=== PATIENT | male | born 1985 | race Caucasian/White ===

== ENCOUNTER 2016-08-12 05:45 | Day surgery (SDC) | payer OTHER ==
[2016-08-12] VITALS (8 sets, daily range): BP systolic 117–165; BP diastolic 57–94; PULSE 70–92; RESP 13–19; O2SAT 92–96
[~2016-08-12] VITALS: Ht 177.8 cm; Wt 92.5 kg
[~2016-08-12 05:45] MED LIST: Lactated Ringer's 1,000 ML IV ONE
[2016-08-12] MEDS ORDERED: fentaNYL-PF 50 mCg/mL 2 mL Inj ONE (05:46)
[2016-08-12] MEDS ORDERED: Propofol 10,000 mCg/mL 20 mL Inj ONE (05:46)
[2016-08-12] MEDS ORDERED: Dexamethasone 4 mg/mL Inj ONE (05:46)
[2016-08-12] MEDS ORDERED: Succinylcholine Chloride 20 mg/mL 5 mL Inj ONE (05:46)
[2016-08-12] MEDS ORDERED: Ondansetron 2 mg/mL 2 mL Inj ONE (05:46)
[2016-08-12] MEDS ORDERED: CeFAZolin Inj 2 gm / 50mL D5W IV ONE (05:48)
[2016-08-12] MEDS ORDERED: CeFAZolin Inj 2 GM in Dextrose 5% 50 ML IV ONE (06:00)
--- NOTE | 2016-08-12 07:15 | PCM.HPANE ---
Patient Data Surgeon Admitting Provider: Attending Provider:Bigg Whittaker DO Primary Care Physician:Betsy Other Provider:Og Son Anesthesia Reason for Visit Right Distal Biceps Tear Ht/WT & BMI Height (Feet): 5 Height (Inches): 10.00 Weight (Kilograms): 92.5 Body Mass Index 29.00 Allergies Coded Allergies: No Known Allergies (Unverified , 08/08/16) Past Anesthesia History Anesthesia History: Denies:: Fam Anesthesia Reaction, Fam Malignant Hypertherm Diabetes History Hx Diabetes?: No MRSA MRSA: No Medications Home Meds Incl Beta Gerda: No No Active Prescriptions or Reported Meds History History of ENT Problems?: No HEENT History: Denies:: Abnormal Airway Cataracts Difficult Intubation Dysphagia Glaucoma Hearing Problem Sinus Problem TMJ Denture Type: None Teeth Condition: Within Normal Limits Hx of Heart Problems?: No Cardiovascular History: Denies:: Heart Murmur Hypertension Hx of Respiratory Problem?: Yes Respiratory History: Denies:: Use of C-PAP Machine (SNORES) Hx Neurologic Problems?: No Hx of GI Problems?: No Hx of Problems?: No Male Hx: Denies:: Prostate Problems Scrotal Mass Testicular Surgery Skin History: Denies:: History Skin Disorders? Pressure Ulcers Hx Musculoskeletal Problems?: Yes Musculoskeletal History: Positive for:: Musculoskeletal Trauma (RT BICEPS TENDON RUPTURE=CURRENT PROBLEM) Hx of Psycho/Social Problems?: No Hx Surgeries?: No Hx Any Other Health Problems?: No Other History: Denies:: Cancer Endocrine Disease Hospitalization Thyroid Disease Hx Diabetes: No Have You Smoked inLast 12 mo: Yes (CIGARS DAILY) Stop/Bang S-Snoring: Do You Snore Loudly: Yes T-Tired: feel tired, fatigued: No P-Blood Pressure: treated: No B- Body Mass Index > 35 kg/m2: No A- Age over 50: No N- Neck Large Circumference: No G- Gender Male: Yes PA Risk Assessment: Low Risk, <3 Yes Risk Assessment Category Category 1A: Patient has history of documented sleep apnea, and HAS NOT received any narcotic, sedative or anesthesia administration during this stay. Category 1B: Patient has history of documented sleep apnea, and HAS received any narcotic , sedative or anesthesia administration during this stay Category 2: Patient has SUSPECTED Obstructive Sleep Apnea, and HAS received any narcotic , sedative or anesthesia administration during this stay. Category 3: Patient has SUSPECTED Obstructive Sleep Apnea and HAS NOT received narcotic, sedative or anesthesia administration during this stay. Category 4: Outpatient in Procedural Areas with known sleep apnea or who screen positive for High Risk via the STOP/BANG questionnaire. Exam Exam Vital Signs Vital Signs Date Time Temp Pulse Resp B/P Pulse Ox O2 Delivery O2 Flow Rate FiO2 08/12/16 06:13 35.8 75 18 135/87 96 Room Air General Appearance: Alert HEENT/AIRWAY: MP 1 Lungs: Clear to Auscultation Heart: Exam Unremarkable Meds/Labs/Diagnostics Admission Meds Current Medications Lactated Ringer's (Lr) 1,000 ml @ 120 mls/hr Q8H20M ONCE IV Last administered on 08/12/16t 05:52; Start 08/12/16 at 05:00; Stop 08/12/16 at 13:19 Plan Impression Patient chart reviewed, patient interviewed and anesthestic plan with risks, benefits, and alternatives discussed, and informed consent obtained. NPO per Anesth. Guidelines: Yes ASA Physical Status: ASA1 Normal Healthy Anesthetic Plan: GA Bene/Risks/Altern/Consents: Yes HP Complete Prior to Induction: Yes Maulik Lee MD August 12, 2016 07:15
[2016-08-12] MEDS ORDERED: Lactated Ringer's 500 ML IV PRN (07:57)
[2016-08-12] MEDS ORDERED: Ropivacaine-PF 0.5% 30 mL Inj INFILTRATE ONE (07:57)
[2016-08-12] MEDS ORDERED: Lactated Ringer's 1,000 ML IV SCH (07:57)
[2016-08-12] MEDS ORDERED: Phenylephrine 10,000 mCg/mL Inj IVPUSH PRN (08:00)
[2016-08-12] MEDS ORDERED: Ondansetron 2 mg/mL 2 mL Inj IVPUSH PRN (08:00)
[2016-08-12] MEDS ORDERED: Dexamethasone 4 mg/mL Inj IVPUSH PRN (08:00)
[2016-08-12] MEDS ORDERED: HYDROmorphone 1 mg/mL Inj IVPUSH PRN (08:00)
[2016-08-12] MEDS ORDERED: EPHEDrine Sulfate 50 mg/mL Inj IVPUSH PRN (08:00)
[2016-08-12] MEDS ORDERED: MetoCLOpramide 5 mg/mL 2 mL Inj IVPUSH PRN (08:00)
[2016-08-12] MEDS ORDERED: fentaNYL-PF 50 mCg/mL 2 mL Inj IVPUSH PRN (08:00)
[2016-08-12] MEDS ORDERED: Lactated Ringer's 1,000 ML IV ONE (09:19)
--- NOTE | 2016-08-12 09:40 | PCM.ANEP1 ---
Post Anesthesia PACU Phase 1 Assessment Vital Signs Vital Signs Date Time Temp Pulse Resp B/P Pulse Ox O2 Delivery O2 Flow Rate FiO2 08/12/16 06:13 35.8 75 18 135/87 96 Room Air Anesthetic Administered: GA Level of Alertness: Awake, talking MCLAIN's with Equal Strength: Yes Pain: No Nausea or Vomiting: No CV Function and Hydration: Yes Airway Device: Oxygen Delivery: Simple Mask Lungs: Clear to Auscultation Dermatome Level: Full Sensation PACU Phase 2 Assessment Complications: No Follow up Care: No Patient Instructions Provided: Yes Maulik Lee MD August 12, 2016 09:40
[2016-08-12] MEDS ORDERED: hydrOXYzine Pamoate 25 mg Capsule PO PRN (09:50)
[2016-08-12] MEDS ORDERED: Acetaminophen IV 1,000 MG in IV Premix 1 EACH IV ONE (09:50)
--- NOTE | 2016-08-12 10:51 | OP ---
[address] [address] OPERATIVE REPORT PATIENT: LENARD FULTON : 1985 MR#: [id number] ADMIT: 08/12/2016 JOB ID: [id number] DATE OF SURGERY: 08/12/2016 PREOPERATIVE DIAGNOSIS(ES): Right distal biceps rupture. POSTOPERATIVE DIAGNOSIS(ES): Right distal biceps rupture. PROCEDURE: Right distal biceps tendon repair. SURGEON: Bigg Whittaker DO INDICATIONS: The patient is a 31-year-old male who injured his right elbow on July 13, 2016, when he was helping to move some construction material, felt a pop in his arm and had immediate onset of pain, swelling, and bruising. He has tried to rehab this, but his arm continues to feel not right. He has pain, weakness, and is unable to supinate. Had an MRI performed which demonstrated a tear of the distal biceps. We discussed treatment options for this, and I recommended operative fixation of his distal biceps tendon rupture. We discussed the risks, benefits, and possible complications of surgery. All questions were answered and he wished to proceed. PROCEDURE IN DETAIL: The patient is brought to the operating room. He was given a preoperative antibiotic and general anesthetic. The right upper extremity was sterilely prepped and draped. A tourniquet was used for hemostasis. An incision was made 2 cm distal to the flexion crease in the elbow. Dissection was carefully carried through the subcutaneous tissue. Electrocautery was used for hemostasis and the veins were ligated and divided. The lateral antebrachial cutaneous nerve was identified and protected through the procedure. Dissection was carried down onto the biceps and there was some fluid and the abnormal attenuated tendinous tissue which had become adherent to the lacertus fibrosus. This was released and the actual biceps tendon had retracted about 6 cm up the arm and was adherent to the underlying brachialis. This was bluntly dissected free in order to mobilize the tendon and the attenuated and mucoid end of the tendon was cut. Next, the cut end of the biceps was whipstitched with a #2 FiberWire through an Endo button placed distally, and then this was run back up through the tendon in order to secure it with a knot more proximally on the tendon. I whipstitched over a distance of about 3 cm up and down the tendon with some running and running locking sutures, yielding excellent fixation of the biceps tendon distally. Next, the radius was prepared. Army-Radisson retractors were used to hold the brachial artery out of harm's way, and a Dubon was used to elevate the tissue over the radial tuberosity. A 0.062 K-wire was introduced into the radial tuberosity. X-ray confirmation was made of appropriate placement, and then the 2.4 guidewire for the Endo button was placed. This was over-reamed with the 4.5 drill. Then, the Endo button was passed using shuttling sutures through the drill hole in the radius. Care was taken to ensure that the hand was held in maximum supination and that the drill was perpendicular to the arm during all preparation of the radius in order to avoid injury to the PIN. The tendon and Endo button were passed. The button was flipped and had excellent fixation on the radius. The C-arm was used to confirm placement of the Endo button firmly along the far cortex of the radius, and the sutures were then removed. The wound was irrigated. Tourniquet was let down. Electrocautery was used for hemostasis. The subcu was closed with 3-0 Vicryl. The skin was closed with interrupted 4-0 nylon. Naropin was added as an adjunct local anesthetic. Sterile dressings were applied as well as a posterior splint. The patient tolerated the procedure well. BLOOD LOSS: 25 cc. POSTOPERATIVE PROTOCOL: Have the patient maintain his arm in a sling for two weeks and then we can remove the splint and have him begin gently working on range of motion at the elbow, with no lifting for at least six weeks. He is given a prescription for Bokeelia 7.5/325.
== END 2016-08-12 23:59 | disposition home or self-care (01) ==
LOC: SAS 05:45
PROVIDERS: ATTEND Orthopaedic Surgery
DX: S46.211A Strain of muscle, fascia and tendon of other parts of biceps, right arm, initial encounter (principal); X50.0XXA Overexertion from strenuous movement or load, initial encounter; Y93.H3 Activity, building and construction; Y92.61 Building [any] under construction as the place of occurrence of the external cause
CPT/HCPCS: 24342; J0131; J0330; J0690; J1100; J1170; J1885; J2250; J2405; J2795; J3010; J7120; Q0177